=== PATIENT | male | born 1950 | race Caucasian/White ===

== ENCOUNTER 2016-08-05 07:19 | Day surgery (SDC) ==
[2016-08-05] MEDS ORDERED: LIDOCAINE 1% 20 ML MDV ID ONE (07:40)
[2016-08-05] MEDS ORDERED: ALBUTEROL 0.083% NEB NEB STA (08:32)
[2016-08-05] MEDS ORDERED: VERSED ONE (09:15)
[2016-08-05] MEDS ORDERED: DIPRIVAN 20 ML VIAL IVP ONE (09:15)
[2016-08-05 11:24] VITALS: BP 181/95; TEMP 98.2
--- NOTE | 2016-08-05 14:52 | OP ---
INDICATIONS FOR PROCEDURE: 65-year-old gentleman with a past history of polyps presents for colonoscopy, unknown pathology. Last colonoscopy was over 6 years ago. MEDICATIONS: SEE ANESTHESIA NOTES. PROCEDURE: COLONOSCOPY, SNARE POLYPECTOMY. REPORT: The risks, benefits, alternatives and limitations were discussed in detail with the patient. Informed consent was obtained. After adequate sedation was achieved, a digital rectal exam revealed good tone, no masses. There was a small external hemorrhoid. The colonoscope was introduced into the rectum and advanced under direct visual guidance to the cecum. The cecum was identified by the appendiceal orifice and IC valve. I then slowly withdrew the scope in a circumferential manner examining the mucosa quite carefully. I looked on the proximal and distal side of folds and flexures as best as possible. I was able to retroflex the scope in the right colon and left colon to increase visualization. With the scope retroflexed at the hepatic flexure, I could see a small 4 or 5 mm polyp. I was able to destroy this using a hot snare. Withdrawing the scope further revealed no other abnormalities all the way down to the rectum. In the rectum on retroflex view there is 1 to 2+ internal hemorrhoids. The prep was good. The withdrawal time was 8 minutes and 59 seconds. The patient tolerated the procedure well with stable vital signs and pulse oximetry throughout. IMPRESSION: 1. SMALL POLYP DESTROYED. 2. 1 TO 2+ INTERNAL AND EXTERNAL HEMORRHOIDS. RECOMMENDATIONS: 1. High fiber diet. 2. Office visit as needed. 3. Repeat colonoscopy examination again in 5 years, sooner if signs or symptoms would indicate otherwise. 4. He can use [id number] Preparation H suppositories and cream as directed and as needed for his hemorrhoids. CC: DR. ÁNGEL ROSARIO
== END 2016-08-05 11:37 | disposition home or self-care (01) ==
LOC: SURG 07:19
PROVIDERS: ATTEND Internal Medicine Gastroenterology
DX: Z86.010 Personal history of colon polyps (principal); K63.5 Polyp of colon; K64.0 First degree hemorrhoids
CPT/HCPCS: 94640